=== PATIENT | female | born 1985 | race Caucasian/White ===

== ENCOUNTER 2018-11-16 03:12 | Inpatient (IN) | payer MEDICAID ==
[2018-11-16 03:56] LABS: ADD UMIC YES; UR ASCORBIC ACID NEGATIVE (NEGATIVE); UR BILIRUBIN (Dip) NEGATIVE (NEGATIVE); UR BLOOD (Dip) 1+ mg/dL (NEGATIVE); UR CLARITY SLIGHTLY CLOUDY (CLEAR); UR COLOR YELLOW (YELLOW); UR GLUCOSE (Dip) NEGATIVE (NEGATIVE); UR KETONES (Dip) NEGATIVE (NEGATIVE); UR LEUKOCYTE ESTERASE (Dip) 2+ Leu/ul (NEGATIVE); UR MUCUS FEW /HPF (NONE SEEN); UR NITRITE (Dip) NEGATIVE (NEGATIVE); UR RBC 9 /HPF (0-5); UR SPECIFIC GRAVITY (Dip) 1.017 (1.003-1.030); UR SQUAMOUS EPITHELIAL CELL FEW /HPF (FEW); UR TOTAL PROTEIN (Dip) NEGATIVE (NEGATIVE); UR UROBILINOGEN (Dip) NEGATIVE (NEGATIVE); UR WBC 56 /HPF (0-5)
[2018-11-16] MEDS ORDERED: LACTATED RINGER'S 1,000 ML IV (04:55)
[2018-11-16] MEDS ORDERED: METHYLERGONOVINE 0.2 MG INJ IM ×2 (05:00→11:00)
[2018-11-16] MEDS ORDERED: OXYTOCIN 30 UNITS/LR 500 ML IV ×3 (05:00→11:00)
[2018-11-16] MEDS ORDERED: MISOPROSTOL 200 MCG TAB PR ×2 (05:00→11:00)
[2018-11-16] MEDS ORDERED: IBUPROFEN 600 MG TAB PO (05:00)
[2018-11-16] MEDS ORDERED: CARBOPROST 250 MCG INJ IM ×2 (05:00→11:00)
[2018-11-16] MEDS ORDERED: LIDOCAINE 1% (MPF) 30 ML INJ INJ (05:00)
[2018-11-16] MEDS: LACTATED RINGER'S 1,000 ML IV (05:49)
[2018-11-16 06:39] LABS: ADD MAN DIFF? NO
[2018-11-16 06:43] LABS: BASOPHILS % 0.1 % (0.0-2.0); EOSINOPHILS # 0.1 10^3/ul (0.0-0.5); EOSINOPHILS % 0.7 % (0.0-7.0); HEMATOCRIT 34.4 % (37.0-47.0); HEMOGLOBIN 11.2 g/dl (12.0-16.0); LYMPHOCYTES # 1.2 10^3/ul (0.8-2.9); LYMPHOCYTES % 13.6 % (15.0-51.0); MEAN CORPUSCULAR HEMOGLOBIN 25.7 pg (29.0-33.0); MEAN CORPUSCULAR HGB CONC 32.6 g/dl (32.0-37.0); MEAN CORPUSCULAR VOLUME 78.9 fl (82.0-101.0); MEAN PLATELET VOLUME 10.2 fl (7.4-10.4); MONOCYTE # 0.4 10^3/ul (0.3-0.9); MONOCYTES % 4.4 % (0.0-11.0); NEUTROPHIL # 7.2 10^3/ul (1.6-7.5); NEUTROPHILS % 80.8 % (39.0-77.0); PLATELET COUNT 183 10^3/UL (140-415); RED BLOOD COUNT 4.36 10^6/ul (4.20-5.40); RED CELL DISTRIBUTION WIDTH 17.8 % (11.5-14.5)
[2018-11-16 06:43] LABS: WHITE BLOOD COUNT 8.9 10^3/ul (4.8-10.8)
[2018-11-16 07:15] LABS: INR 0.87; PROTIME 11.9 Sec (11.9-14.9); PT RATIO 0.9
[2018-11-16 07:16] LABS: PARTIAL THROMBOPLASTIN TIME 28.5 Sec (23.0-35.0)
[2018-11-16 07:45] LABS: HEPATITIS B SURFACE ANTIGEN NEGATIVE (NEGATIVE)
[2018-11-16] MEDS: BUTORPHANOL 2 MG INJ IV (08:43)
[2018-11-16] MEDS: OXYTOCIN 30 UNITS/LR 500 ML IV ×2 (09:28→12:20)
[2018-11-16] MEDS: LACTATED RINGER'S 1,000 ML IV* ×2 (10:34→18:34)
[2018-11-16] MEDS ORDERED: ZOLPIDEM 5 MG TAB PO (11:00)
[2018-11-16] MEDS ORDERED: ACETAMINOPHEN 325 MG TAB PO (11:00)
[2018-11-16] MEDS ORDERED: MAGNESIUM HYDROXIDE 30ML CUP PO (11:00)
[2018-11-16] MEDS ORDERED: HYDROCODONE/APAP (5/325) TAB PO (11:00)
[2018-11-16] MEDS ORDERED: DIPHENHYDRAMINE 25 MG CAP PO (11:00)
[2018-11-16] MEDS: MINERAL OIL LIGHT 10 ML VIAL TOP (11:03)
[2018-11-16] MEDS: IBUPROFEN 800 MG TAB PO ×2 (12:16→18:06)
[2018-11-16] MEDS: BENZOCAINE 20% 56 ML SPRAY TOP (12:16)
[2018-11-16] MEDS: WITCH HAZEL/GLYCERIN PAD PR (12:17)
[2018-11-16 16:23] LABS: RAPID PLASMA REAGIN NONREACTIVE (NR)
[2018-11-17] MEDS: IBUPROFEN 800 MG TAB PO ×4 (00:01→17:40)
[2018-11-17 08:01] LABS: RUBELLA ANTIBODY - IGG 7.57 index
[2018-11-17 08:02] LABS: ADD MAN DIFF? NO
[2018-11-17 08:06] LABS: WHITE BLOOD COUNT 7.5 10^3/ul (4.8-10.8)
[2018-11-17 08:06] LABS: BASOPHILS % 0.3 % (0.0-2.0); EOSINOPHILS # 0.1 10^3/ul (0.0-0.5); EOSINOPHILS % 1.7 % (0.0-7.0); HEMATOCRIT 31.9 % (37.0-47.0); HEMOGLOBIN 10.1 g/dl (12.0-16.0); LYMPHOCYTES # 1.7 10^3/ul (0.8-2.9); MEAN CORPUSCULAR HEMOGLOBIN 25.4 pg (29.0-33.0); MEAN CORPUSCULAR HGB CONC 31.7 g/dl (32.0-37.0); MEAN CORPUSCULAR VOLUME 80.2 fl (82.0-101.0); MEAN PLATELET VOLUME 10.6 fl (7.4-10.4); MONOCYTE # 0.5 10^3/ul (0.3-0.9); MONOCYTES % 6.3 % (0.0-11.0); NEUTROPHIL # 5.2 10^3/ul (1.6-7.5); PLATELET COUNT 170 10^3/UL (140-415); RED BLOOD COUNT 3.98 10^6/ul (4.20-5.40); RED CELL DISTRIBUTION WIDTH 17.9 % (11.5-14.5)
[2018-11-17] MEDS: SENNA/DOCUSATE NA (8.6MG/50MG) TAB PO (08:37)
[2018-11-17] MEDS: LANOLIN HPA 1 PKT TOP (08:37)
[2018-11-18] MEDS: IBUPROFEN 800 MG TAB PO ×4 (00:59→15:46)
[2018-11-18] MEDS: VARICELLA VACCINE LIVE/PF 1,350 UNIT/0.5 ML ML SC* (09:14)
[2018-11-18] MEDS: DIPHTH/TET/ACEL PERTUSS (ADULT) 0.5 ML VIAL IM* (09:14)
[2018-11-18] MEDS: MEASLES,MUMPS,RUBELLA VACCINE INJ SC* (09:14)
[2018-11-18] MEDS: WITCH HAZEL/GLYCERIN PAD PR (14:38)
[2018-11-18] MEDS: BENZOCAINE 20% 56 ML SPRAY TOP (14:39)
[2018-11-20 12:36] LABS: RUBELLA ANTIBODY - IGM <20.00 AU/mL
== END 2018-11-18 18:31 | disposition home or self-care (01) | DRG 807 ==
LOC: OBT 03:12 → L-D 03:17 → OBT 04:30 → L-D 04:30 → PP1 10:35
PROC: 10E0XZZ Delivery of Products of Conception, External Approach (ICD-10-PCS; principal; 2018-11-16)
PROC: 0HQ9XZZ Repair Perineum Skin, External Approach (ICD-10-PCS; 2018-11-16)
DX: O35.1XX0 Maternal care for (suspected) chromosomal abnormality in fetus, not applicable or unspecified (principal); Z37.0 Single live birth; O70.9 Perineal laceration during delivery, unspecified; Z3A.38 38 weeks gestation of pregnancy
CPT/HCPCS: 81001; 85025; 85610; 85730; 86592; 86762; 86850; 86900; 86901; 87086; 87340; 88307; 99464